=== PATIENT | female | born 1985 | race Caucasian/White ===

== ENCOUNTER → 2020-11-25 | Outpatient (CLI) | payer OTHER ==
--- NOTE | 2020-11-25 15:34 | KCIC ---
Two-view chest dated 11/25/2020. No comparison available. Clinical data indication: Mid chest pain. FINDINGS: PA and lateral views obtained. Heart and mediastinal contours are within normal limits. Lungs are fili ar. No consolidation or pleural effusion. No pneumothorax. IMPRESSION: No acute findings. Electronically signed by: Duc Craft MD (11/25/2020 3:32 PM) [id number]
== END ==
LOC: KCIC 13:27
PROVIDERS: ATTEND Family Medicine
DX: R06.09 Other forms of dyspnea (principal); R07.9 Chest pain, unspecified
CPT/HCPCS: 71046